=== PATIENT | male | born 1965 | race Caucasian/White ===

== ENCOUNTER → 2019-04-17 | Outpatient (CLI) | payer MEDICARE, MEDICAID ==
[~2019-04-17] MED LIST: /AUGM875TA OR; /LOR25TA OR; ALBU83IN IN; BISO10TA2 OR; GLUC500T OR; LISI5TAB OR; SYMB80AE IN; VARE1TA OR; ZEBE1TAB OR; meloxicam OR
--- NOTE | 2019-04-17 17:30 | REP ---
Clinical: Lung screening. History smoking. Comparison: 01/14/2012 Technique: Axial low-dose noncontrast images from the thoracic inlet to the upper abdomen using lung screening technique. Findings: The lung damon are well-aerated. There is a 3 cm rounded density at the right lung base with prominent thick spiculations and chronic appearing pleural reaction which may represent chronic atelectasis given the findings on prior examination of 2011. Minimal scarring is suggested at the lingula. No further acute nodule or mass lesion. Tracheobronchial tree is patent. Mediastinum demonstrates mild atherosclerotic changes of the coronary arteries without cardiomegaly. Impression: Findings do not fit into standard Lung-Rads criteria without appropriate baseline. Follow-up in 3-6 months may be warranted to evaluate for stability. Electronically Signed by Kevyn Judd MD 04/17/2019 05:22 P
== END ==
LOC: M RAD 09:56
PROVIDERS: ATTEND Internal Medicine Pulmonary Disease
DX: Z12.2 Encounter for screening for malignant neoplasm of respiratory organs (principal); Z87.891 Personal history of nicotine dependence; R91.8 Other nonspecific abnormal finding of lung field; I25.10 Atherosclerotic heart disease of native coronary artery without angina pectoris

== ENCOUNTER → 2019-11-12 | Outpatient (CLI) | payer MEDICARE, MEDICAID ==
--- NOTE | 2020-01-01 14:07 | REP ---
CT OF THE CHEST WITHOUT IV CONTRAST: Delay in dictation results from malfunction of the hospital computer system because of a malware/ransomware attack. COMPARISON: Most recent prior study which is a low dose lung screening chest CT dated 04/17/19 and prior studies dated 12/14/11, 01/08/12 and 01/14/12. FINDINGS: There is a focal density with adjacent pleural thickening in the posterior segment of the right lower lobe measuring 3.9 cm in greatest diameter, unchanged from 04/17/19. On the studies of November, December and January of 2012, the patient had empyema in the deep posterior sulcus of the right lower lobe, treated with pleural drainage catheterization. The current finding in the right lower lobe likely represents chronic atelectasis and scarring as a consequence of the previous empyema. The findings are stable and unchanged from 04/17/19. There are no other lung masses or nodules. There are no acute infiltrates or pleural effusions. There is no mediastinal or axillary lymph node enlargement. In the absence of IV contrast, the study is insensitive for hilar lymph node enlargement. There is calcified atheroma in the coronary arteries. The cardiac size is normal. The thoracic aorta is unremarkable. In the upper abdomen, there is a large hypodense left adrenal lesion measuring 7.5 x 3.0 cm. This was present on 12/14/11 where it measured 10 x 6.3 cm. There is also thickening of the right adrenal, unchanged. This may represent asymetric adrenal cortical hyperplasia or may represent bilateral adrenal adenomas or myelolipomas. The visualized hepatic parenchyma, gallbladder, pancreas and spleen are unremarkable. IMPRESSION: The lesion in the inferior posterior segment of the right lower lobe is stable and unchanged from 04/17/19 and is likely chronic atelectasis versus scarring as a consequence of empyema identified on prior studies dating to 12/14/11. There are stable bilateral hypodense adrenal lesions as discussed, also not significantly changed, likely adrenal myelolipomas or adenomas. Otherwise, essentially negative CT study of the chest. Depending on risk factors, follow up annual low dose lung screening chest CT might be considered for further evaluation. MTDD
== END ==
LOC: M RAD 15:00
PROVIDERS: ATTEND Physician Assistant
DX: R91.8 Other nonspecific abnormal finding of lung field (principal)

== ENCOUNTER → 2020-12-01 | Outpatient (CLI) | payer OTHER, MEDICAID ==
--- NOTE | 2020-12-01 20:06 | REP ---
INDICATION: NICOTINE DEPENDENCE COMPARISON: 04/17/2019 TECHNIQUE: Axial noncontrast images from the thoracic inlet to the upper abdomen using low-dose lung screening technique (LDCT). FINDINGS: Lung damon suggest mild emphysematous changes along with scattered scarring including suspected chronic scarring versus chronic rounded atelectasis and adjacent chronic pleural reaction at the right base unchanged from 04/17/2019. There is a 4 mm perifissural noncalcified nodule along the minor fissure (series 201; image 50) which in retrospect was barely visible on 04/17/2019 due to technique, as well as a 2.5 mm noncalcified nodule adjacent to the left major fissure (series 201; image 45) which are both stable compared through 2012 and consistent with small granuloma. No acute consolidation, suspicious nodule or mass. No pleural effusion. No pneumothorax. Tracheobronchial tree is patent. IMPRESSION: Lung-RADS category 2. Chronic stable changes. Management recommendations include annual low-dose CT surveillance. <Electronically signed by Kevyn Judd > 12/01/202002
== END ==
LOC: M RAD 10:38
PROVIDERS: ATTEND Internal Medicine Pulmonary Disease
DX: Z12.2 Encounter for screening for malignant neoplasm of respiratory organs (principal); Z87.891 Personal history of nicotine dependence; R91.8 Other nonspecific abnormal finding of lung field

== ENCOUNTER → 2022-01-11 | Outpatient (CLI) | payer OTHER, MEDICAID | LOC: M RAD 07:22 | PROVIDERS: ATTEND Internal Medicine Pulmonary Disease | DX: Z12.2 Encounter for screening for malignant neoplasm of respiratory organs (principal); Z87.891 Personal history of nicotine dependence; R91.8 Other nonspecific abnormal finding of lung field ==

== ENCOUNTER → 2023-07-04 | Outpatient (CLI) | payer OTHER, MEDICAID | LOC: M RAD 09:10 | PROVIDERS: ATTEND Internal Medicine Pulmonary Disease | DX: Z12.2 Encounter for screening for malignant neoplasm of respiratory organs (principal); Z87.891 Personal history of nicotine dependence; R91.1 Solitary pulmonary nodule; J84.10 Pulmonary fibrosis, unspecified ==

== ENCOUNTER → 2024-08-07 | Outpatient (CLI) | payer OTHER, MEDICAID | LOC: M RAD 09:17 | PROVIDERS: ATTEND Internal Medicine Pulmonary Disease | DX: Z12.2 Encounter for screening for malignant neoplasm of respiratory organs (principal); Z87.891 Personal history of nicotine dependence; I70.0 Atherosclerosis of aorta; I25.10 Atherosclerotic heart disease of native coronary artery without angina pectoris; J84.10 Pulmonary fibrosis, unspecified; R91.8 Other nonspecific abnormal finding of lung field; J43.9 Emphysema, unspecified ==